=== PATIENT | female | born 1995 | race Caucasian/White ===

== ENCOUNTER 2016-07-03 11:52 | Emergency (ER) | payer OTHER ==
[2016-07-03 13:31] VITALS: BP 108/72
--- NOTE | 2016-07-03 14:01 | UC ---
Respiratory Complaint HPI - HPI Summary HPI Summary: 2d of fever, chills, fatigue, ST. Exposed to Strep and flu at college. No asthma. No vomiting or diarrhea. Headache - History of Current Complaint Chief Complaint: UCGeneralIllness Stated Complaint: THROAT Time Seen by Provider: 07/03/16 13:47 Hx Obtained From: Patient Hx Last Menstrual Period: 07/03/16 Onset/Duration: Gradual Onset, Lasting Days - 2 Timing: Constant Severity Initially: Mild Severity Currently: Mild Character: Cough: Nonproductive Associated Signs And Symptoms: Positive: Fever, Chills, URI, Nasal Congestion, Hoarseness - Risk Factors Pulmonary Embolism Risk Factors: Negative Cardiac Risk Factors: Negative Pseudomonas Risk Factors: Negative Tuberculosis Risk Factors: Negative - Allergies/Home Medications Allergies/Adverse Reactions: Allergies Allergy/AdvReac Type Severity Reaction Status Date / Time No Known Allergies Allergy Verified 07/03/16 13:27 Home Medications: Home Medications Doxycycline Hyclate [Acticlate] 75 mg PO DAILY 07/03/16 [History Confirmed 07/03] PMH/Surg Hx/FS Hx/Imm Hx Previously Healthy: Yes - Surgical History Surgical History: None - Family History Known Family History: Positive: Respiratory Disease - asthma - Social History Occupation: Student Lives: Alone - dorm Alcohol Use: Occasionally Substance Use Type: None Smoking Status (MU): Never Smoked Tobacco Review of Systems Constitutional: Fever, Chills, Fatigue Skin: Negative Eyes: Negative ENT: Sore Throat Respiratory: Cough - dry, mild Cardiovascular: Negative Gastrointestinal: Negative Genitourinary: Negative Motor: Negative Neurovascular: Negative Musculoskeletal: Negative Neurological: Negative Psychological: Negative All Other Systems Reviewed And Are Negative: Yes Physical Exam Triage Information Reviewed: Yes Appearance: Well-Appearing, No Pain Distress, Well-Nourished Vital Signs: Initial Vital Signs Temp 99.2 F 07/03/16 13:27 Pulse 77 07/03/16 13:27 Resp 16 07/03/16 13:27 BP 108/72 07/03/16 13:27 Pulse Ox 100 07/03/16 13:27 Vital Signs Reviewed: Yes Eye Exam: Normal ENT Exam: Normal ENT: Positive: Hearing grossly normal, Pharyngeal erythema, TMs normal, Tonsillar swelling. Negative: Tonsillar exudate, Trismus, Muffled/hoarse voice Neck exam: Normal Neck: Positive: Supple, Tenderness @ - left submandib pea-sized node Respiratory Exam: Normal Respiratory: Positive: Lungs clear, Normal breath sounds, No respiratory distress, No accessory muscle use Cardiovascular Exam: Normal Musculoskeletal Exam: Normal Neurological Exam: Normal Psychological Exam: Normal Skin Exam: Normal UC Diagnostic Evaluation - Laboratory O2 Sat by Pulse Oximetry: 100 Diagnostic Studies Comment: Strep neg Respiratory Course/Dx - Differential Dx/Diagnosis Differential Diagnosis/HQI/PQRI: Bronchitis, Lower Resp Infection Provider Diagnoses: URI Discharge - Discharge Plan Condition: Stable Disposition: HOME Prescriptions: Guaifenesin-Codeine [Cheratussin AC] 1 - 2 syp PO Q6HR PRN #120 ml MDD 30ml PRN Reason: cough or sore throat Patient Education Materials: Upper Respiratory Infection (ED) Forms: *School Release Referrals: No Primary Care Phys,NOPCP [Primary Care Provider] - Additional Instructions: Your Strep test was negative. Mononucleosis is one of many viruses that can cause symptoms like you are experiencing. The blood test for mono is accurate after 10 days of illness, so if you still have fever, fatigue, sore throat in 10d you may want to consider a mono test. Rest, fluids, Tylenol or Motrin
== END 2016-07-03 14:07 | disposition home or self-care (01) ==
LOC: UCCORT 11:52
DX: J06.9 Acute upper respiratory infection, unspecified (principal)
CPT/HCPCS: 87651; 99212; G0463

== ENCOUNTER 2016-07-17 11:33 | Emergency (ER) | payer OTHER ==
[2016-07-17] MEDS ORDERED: predniSONE TAB* 20 MG PO ONE (14:00)
[2016-07-17 14:01] VITALS: BP 124/64
--- NOTE | 2016-07-17 14:01 | UC ---
Throat Pain/Nasal He HPI - HPI Summary HPI Summary: Patient has had sorethroat, fatique, nausea, upper abdominal pain for the past two weeks. - History of Current Complaint Stated Complaint: SORE THROAT Time Seen by Provider: 07/17/16 13:50 Hx Obtained From: Patient Hx Last Menstrual Period: 07/03/16 Onset/Duration: Sudden Onset, Lasting Weeks Severity: Moderate Pain Intensity: 6 Pain Scale Used: 0-10 Numeric Cough: Nonproductive Associated Signs & Symptoms: Positive: Dysphagia, Wheezing, Fever - Epiglottits Risk Factors Epiglottis Risk Factors: Negative - Allergies/Home Medications Allergies/Adverse Reactions: Allergies Allergy/AdvReac Type Severity Reaction Status Date / Time No Known Allergies Allergy Verified 07/17/16 13:57 PMH/Surg Hx/FS Hx/Imm Hx Previously Healthy: Yes - Surgical History Surgical History: None - Family History Known Family History: Positive: Respiratory Disease - asthma - Social History Alcohol Use: Occasionally Substance Use Type: None Smoking Status (MU): Never Smoked Tobacco Review of Systems Constitutional: Fever, Fatigue Skin: Negative Eyes: Negative ENT: Sore Throat Respiratory: Negative Cardiovascular: Negative Gastrointestinal: Negative Genitourinary: Negative Motor: Negative Neurovascular: Negative Musculoskeletal: Myalgia Neurological: Headache Psychological: Negative All Other Systems Reviewed And Are Negative: Yes Physical Exam Triage Information Reviewed: Yes Appearance: Well-Nourished, Ill-Appearing, Pain Distress Eye Exam: Normal Eyes: Positive: Conjunctiva Clear ENT: Positive: Hearing grossly normal, Pharyngeal erythema, TMs normal, Tonsillar swelling, Muffled/hoarse voice Dental Exam: Normal Neck exam: Normal Neck: Positive: Supple, Nontender, Enlarged Nodes @ - bilateral cervical Respiratory Exam: Normal Respiratory: Positive: Chest non-tender, Lungs clear, Normal breath sounds Cardiovascular Exam: Normal Cardiovascular: Positive: RRR, No Murmur, Pulses Normal Abdominal Exam: Normal Abdomen Description: Positive: Soft, Other: - upper right and left quad pain on palpation, no masses or organomegaly noted Bowel Sounds: Positive: Present Musculoskeletal Exam: Normal Musculoskeletal: Positive: Strength Intact, ROM Intact, No Edema Neurological Exam: Normal Neurological: Positive: Alert, Muscle Tone Normal Psychological Exam: Normal Skin Exam: Normal Throat Pain/Nasal Course/Dx - Course Course Of Treatment: hx obtained, exam performed, meds reviewed, cbc and monospot taken, prednisone given. r/o mono, educated on treatment of viral illness - Differential Dx/Diagnosis Differential Diagnosis/HQI/PQRI: Influenza, Laryngitis, Mononucleosis, Otitis Media, Pharyngitis, Sinusitis, Tonsillitis, URI Provider Diagnoses: pharyngitis. fever. abdominal pain. possible mono vs tonsillitis Discharge - Discharge Plan Condition: Stable Disposition: HOME Patient Education Materials: Mononucleosis (ED) Additional Instructions: Take the medication as prescribed. Get plenty of rest and increase your fluid intake. 1. Ibuprofen or tylenol for pain and fever. 2. Avoid contact sports. I recommend follow up at the [facility] in 2 weeks to make sure you are progressing well. feel free to return for any worsening symptoms.
[2016-07-18 11:14] LABS: EBV Response NO
[2016-07-18 11:28] LABS: Hematocrit 39 % (35-47); Hemoglobin 13.1 g/dl (12.0-16.0); Mean Corpuscular HGB Conc 34 g/dl (31-36); Mean Corpuscular Hemoglobin 30 pg (27-31); Mean Corpuscular Volume 88 fL (80-97); Mean Platelet Volume 10 um3 (7.4-10.4); Red Blood Count 4.42 10^6/ul (4.0-5.4); Red Cell Distribution Width 12 % (10.5-15); White Blood Count 12.2 10^3/ul (3.5-10.8)
[2016-07-18 11:29] LABS: Add Diff/Slide Review? Slide Review Added; Comments Flag Yes
[2016-07-18 11:58] LABS: Mono Internal Control QC Line Present
== END 2016-07-17 14:24 | disposition home or self-care (01) ==
LOC: UCCORT 11:33
DX: J02.9 Acute pharyngitis, unspecified (principal)
CPT/HCPCS: 36415; 85025; 86308; 99212; G0463; J7512

== ENCOUNTER 2016-09-26 11:58 | Emergency (ER) | payer OTHER ==
[2016-09-26 12:12] VITALS: BP 105/79
[2016-09-26] MEDS ORDERED: diPHENhydraMINE PO* 50 MG PO ONE (12:12)
[2016-09-26] MEDS ORDERED: predniSONE TAB* 20 MG PO ONE (12:12)
--- NOTE | 2016-09-26 12:25 | ED ---
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 The patient is presenting here with upper and lower eyelid swelling, itchy eyes but no drainage. She states that she is breathing fine. No drooling. No tongue or lip swelling. She has no rash. The patient states she had fever, chills, body aches a week ago but has felt well just prior to this happening. The trees and [place] are in [place] now and this is her first springtime in [facility]. she is from [place] [place]. She wears contact lenses, but has not used them for the past couple days because she has just wanted to use her glasses. - History of Current Complaint Chief Complaint: UCAllergicReaction Time Seen by Provider: 09/26/16 12:03 Hx Last Menstrual Period: 09/05/16 - Allergies/Home Medications Allergies/Adverse Reactions: Allergies Allergy/AdvReac Type Severity Reaction Status Date / Time No Known Allergies Allergy Verified 09/26/16 11:59 Home Medications: Home Medications Doxycycline Hyclate [Acticlate] 1 tab PO DAILY 09/26/16 [History Confirmed 09/26] PMH/Surg Hx/FS Hx/Imm Hx Infectious Disease History: No Infectious Disease History: Denies: Traveled Outside the [place] in Last 30 Days - Family History Known Family History: Positive: Respiratory Disease - asthma - Social History Alcohol Use: Occasionally Substance Use Type: Reports: None Smoking Status (MU): Never Smoked Tobacco Review of Systems Constitutional: Negative Positive: Other - eyelid swelling, and itching, but no drainage. Negative: Shortness Of Breath Negative: Rash All Other Systems Reviewed And Are Negative: Yes Physical Exam Triage Information Reviewed: Yes Vital Signs On Initial Exam: Initial Vitals Temp Pulse Resp BP Pulse Ox 97.9 F 78 16 105/79 100 09/26/16 12:02 09/26/16 12:02 09/26/16 12:02 09/26/16 12:02 09/26/16 12:02 Vital Signs Reviewed: Yes Appearance: Positive: Well-Appearing, No Pain Distress Skin: Positive: Warm, Skin Color Reflects Adequate Perfusion, Other - no rash Head/Face: Positive: Normal Head/Face Inspection Eyes: Positive: EOMI, KHOI, Conjunctiva Inflammed - but no drainage., Other: - eyelids are mildly swollen, but no crusting, no redness. Neck: Positive: Supple Respiratory/Lung Sounds: Positive: Clear to Auscultation, Breath Sounds Present Cardiovascular: Positive: Normal, RRR. Negative: Murmur Abdomen Description: Positive: Nontender Musculoskeletal: Positive: Normal, Strength/ROM Intact Neurological: Positive: Normal, Sensory/Motor Intact, Alert, Oriented to Person Place, Time, CN Intact II-III Psychiatric: Positive: Normal Diagnostics - Vital Signs Vital Signs Temp Pulse Resp BP Pulse Ox 09/26/16 12:02 97.9 F 78 16 105/79 100 - Laboratory Lab Statement: Any lab studies that have been ordered have been reviewed, and results considered in the medical decision making process. Allergic Reaction Course/Dx - Course Course Of Treatment: 21 yr old with itchy eyes, and swollen lids. She wants the swelling to go down quickly. I have prescribed prednisone and benadryl. - Diagnoses Provider Diagnoses: Conjunctivitis, allergic, Allergic Discharge - Discharge Plan Condition: Good Disposition: HOME Prescriptions: diPHENhydraMINE PO* [Benadryl PO 25 MG TAB*] 25 mg PO Q6H #6 tab predniSONE TAB* [Deltasone TAB*] 40 mg PO DAILY #6 tab Patient Education Materials: Allergies (ED) Referrals: No Primary Care Phys,NOPCP [Primary Care Provider] - [facility] [Outside]
== END 2016-09-26 12:28 | disposition home or self-care (01) ==
LOC: UCCORT 11:58
DX: H10.10 Acute atopic conjunctivitis, unspecified eye (principal)
CPT/HCPCS: 99212; A9270-GY; G0463; J7512

== ENCOUNTER 2017-04-24 09:49 | Emergency (ER) | payer OTHER ==
[2017-04-24 10:53] VITALS: BP 125/69
--- NOTE | 2017-04-24 11:00 | UC ---
Throat Pain/Nasal He HPI - HPI Summary HPI Summary: pt c/o nasal congestion, cough, and generalized malaise X 1 week. - History of Current Complaint Stated Complaint: COUGH,SORE THROAT Time Seen by Provider: 04/24/17 10:39 Hx Obtained From: Patient Hx Last Menstrual Period: 04/03/17 ?: No Onset/Duration: Gradual Onset, Lasting Days - 7 Severity: Mild Cough: Nonproductive Associated Signs & Symptoms: Positive: Sinus Discomfort - Epiglottits Risk Factors Epiglottis Risk Factors: Negative - Allergies/Home Medications Allergies/Adverse Reactions: Allergies Allergy/AdvReac Type Severity Reaction Status Date / Time No Known Allergies Allergy Verified 04/24/17 10:50 PMH/Surg Hx/FS Hx/Imm Hx Previously Healthy: Yes - Surgical History Surgical History: None - Family History Known Family History: Positive: Respiratory Disease - asthma - Social History Occupation: Student - [employer] Lives: Dormitory/Roommates Alcohol Use: Occasionally Substance Use Type: None Smoking Status (MU): Former Smoker Have You Smoked in the Last Year: No - Immunization History Most Recent Influenza Vaccination: January 2017 Vaccination Up to Date: Yes Review of Systems Constitutional: Chills, Fatigue Skin: Negative Eyes: Negative ENT: Sore Throat, Sinus Congestion Respiratory: Cough Cardiovascular: Negative Gastrointestinal: Negative Genitourinary: Negative Motor: Negative Neurovascular: Negative Musculoskeletal: Negative Neurological: Headache Psychological: Negative Is Patient Immunocompromised?: No All Other Systems Reviewed And Are Negative: Yes Physical Exam Triage Information Reviewed: Yes Appearance: Ill-Appearing - mild Vital Signs: Initial Vital Signs Temp 98.9 F 04/24/17 10:47 Pulse 80 04/24/17 10:47 Resp 16 04/24/17 10:47 BP 125/69 04/24/17 10:47 Pulse Ox 98 04/24/17 10:47 Vital Signs Reviewed: Yes Eye Exam: Normal ENT Exam: Other ENT: Positive: Nasal congestion Dental Exam: Normal Neck exam: Normal Respiratory Exam: Normal Cardiovascular Exam: Normal Musculoskeletal Exam: Normal Neurological Exam: Normal Psychological Exam: Normal Skin Exam: Normal Throat Pain/Nasal Course/Dx - Differential Dx/Diagnosis Differential Diagnosis/HQI/PQRI: Influenza, URI Provider Diagnoses: URI. cough Discharge - Discharge Plan Condition: Stable Disposition: HOME Prescriptions: Benzonatate CAP* [Tessalon 100 MG CAP*] 100 mg PO Q8H PRN #30 cap PRN Reason: Cough methylPREDNISolone TAB* [Medrol TAB*] 4 - 8 mg PO .SEE PENNIE #1 pennie Patient Education Materials: Viral Syndrome (ED), Acute Cough (ED) Referrals: No Primary Care Phys,NOPCP [Primary Care Provider] - If Needed
== END 2017-04-24 11:11 | disposition home or self-care (01) ==
LOC: UCCORT 09:49
DX: J06.9 Acute upper respiratory infection, unspecified (principal); R05 Cough; Z87.891 Personal history of nicotine dependence
CPT/HCPCS: 99212; G0463

== ENCOUNTER 2017-06-28 19:37 | Emergency (ER) | payer OTHER ==
[2017-06-28 20:07] VITALS: BP 113/65
--- NOTE | 2017-06-28 21:11 | ED ---
Neck Pain - HPI Summary HPI Summary: 21 yr old with complaint of pain to the upper right anterior neck after getting a hockey puck slap shot to the neck. She said she coughed up blood after the injury. She has pain in the upper anterior neck and worse with touching and opening and closing the jaw. Also worse with swallowing. No drooling. No trouble breathing. Denies blurred vision. Denies focal deficits. - History of Current Complaint Chief Complaint: UCTrauma Stated Complaint: NECK/JAW INJURY Time Seen by Provider: 06/28/17 20:56 Hx Last Menstrual Period: 06/07/17 Pain Intensity: 4 - Allergies/Home Medications Allergies/Adverse Reactions: Allergies Allergy/AdvReac Type Severity Reaction Status Date / Time No Known Allergies Allergy Verified 06/28/17 19:59 Home Medications: Home Medications Pseudoephedrine HCl [Sudafed Congestion] 30 mg PO Q4H PRN 06/28/17 [History Confirmed 06/28/17] PMH/Surg Hx/FS Hx/Imm Hx Previously Healthy: Yes - Surgical History Hx Anesthesia Reactions: No Infectious Disease History: No Infectious Disease History: Denies: Traveled Outside the [place] in Last 30 Days - Family History Known Family History: Positive: Respiratory Disease - asthma - Social History Occupation: Student Alcohol Use: Occasionally Substance Use Type: Reports: None Smoking Status (MU): Never Smoked Tobacco Have You Smoked in the Last Year: No Review of Systems Positive: Other - right upper anterior neck pain and swelling Negative: Weakness, Paresthesia, Numbness, Syncope, Slurred Speech All Other Systems Reviewed And Are Negative: Yes Physical Exam Triage Information Reviewed: Yes Vital Signs On Initial Exam: Initial Vitals Temp Pulse Resp BP Pulse Ox 97.7 F 65 24 113/65 100 06/28/17 20:00 06/28/17 20:00 06/28/17 20:00 06/28/17 20:00 06/28/17 20:00 Vital Signs Reviewed: Yes Appearance: Positive: Well-Appearing, No Pain Distress Skin: Positive: Warm Head/Face: Positive: Normal Head/Face Inspection ENT: Positive: Pharynx normal, Other - she has tenderness and swelling over the upper right anterior neck over the sternocleidomastoid and in the area of the carotid artery. No bruit heard. She has pain opening her mouth. No drooling. She is tender over the right angle mandible as well.. Negative: Nasal congestion, Muffled voice, Hoarse voice Neck: Positive: Other: - cervical spine nontender. There is a hematoma present right upper anterior neck. Respiratory/Lung Sounds: Positive: Clear to Auscultation, Breath Sounds Present Cardiovascular: Positive: RRR. Negative: Murmur Abdomen Description: Positive: Nontender Musculoskeletal: Positive: Strength/ROM Intact Neurological: Positive: Sensory/Motor Intact, Alert, Oriented to Person Place, Time, CN Intact II-III Psychiatric: Positive: Normal - Robel Coma Scale Best Eye Response: 4 - Spontaneous Best Motor Response: 6 - Obeys Commands Best Verbal Response: 5 - Oriented Coma Scale Total: 15 Diagnostics - Vital Signs Vital Signs Temp Pulse Resp BP Pulse Ox 06/28/17 20:00 97.7 F 65 24 113/65 100 - Laboratory Lab Statement: Any lab studies that have been ordered have been reviewed, and results considered in the medical decision making process. Neck Course/Dx - Course Course Of Treatment: 21 yr old with possible right carotid injury and possible hematoma in neck as well as possible mandible injury. The injury is below the mandible. She was recommended to go to the ER by ambulance for further evaluation. She signed out AMA. - Diagnoses Provider Diagnoses: Hematoma of neck, Neck soft tissue injury Discharge - Discharge Plan Condition: Good Disposition: AGAINST MEDICAL ADVICE Referrals: No Primary Care Phys,NOPCP [Primary Care Provider] -
== END 2017-06-28 21:05 | disposition left against medical advice (07) ==
LOC: UCCORT 19:37
DX: S10.93XA Contusion of unspecified part of neck, initial encounter (principal); S19.9XXA Unspecified injury of neck, initial encounter; W21.220A Struck by ice hockey puck, initial encounter; Y93.22 Activity, ice hockey; Y92.39 Other specified sports and athletic area as the place of occurrence of the external cause
CPT/HCPCS: 99212; G0463

== ENCOUNTER 2019-05-30 15:29 | Emergency (ER) | payer OTHER | END 2019-05-30 16:24 | disposition left against medical advice (07) | LOC: UCCORT 15:29 | DX: Z53.21 Procedure and treatment not carried out due to patient leaving prior to being seen by health care provider (principal) ==